=== PATIENT | male | born 1985 | race Caucasian/White ===

== ENCOUNTER 2020-10-16 09:30 | Emergency (ER) | payer OTHER ==
[~2020-10-16] VITALS: Ht 188 cm; Wt 83.9 kg
[2020-10-16 09:39] VITALS: BP 100/57
--- NOTE | 2020-10-16 09:40 | NUR ---
DR. MELCHOR AT BEDSIDE FOR EVAL.
[2020-10-16] MEDS ORDERED: LIDOCAINE 1%-EPI 1:100,000 20 ML VIAL ONE (09:48)
[2020-10-16] MEDS ORDERED: TDAP [DIPH/PERTUSSIS/TET] 0.5 ML VIAL IM ONE ×2 (09:49→10:00)
--- NOTE | 2020-10-16 10:29 | NUR ---
DR. MELCHOR AT BEDSIDE FOR LAC REPAIR.
--- NOTE | 2020-10-16 11:15 | NUR ---
PATIENT ABLE TO MOVE RIGHT HAND C/O PAIN WITH MOVEMENT. DR. MELCHOR AWARE.
[2020-10-16] MEDS ORDERED: METR500T PO (11:16)
[2020-10-16] MEDS ORDERED: DOXY100T2 PO (11:16)
--- NOTE | 2020-10-16 11:25 | NUR ---
SUTURE ON RFA COVERED WITH DRESSING AND ANTIBIOTIC OINTMENT. Patient discharged to home in stable condition. Written and verbal after care instructions given. Patient verbalizes understanding of instruction.
== END 2020-10-16 11:29 | disposition home or self-care (01) ==
LOC: ER 09:36
DX: S51.811A Laceration without foreign body of right forearm, initial encounter (principal); F17.200 Nicotine dependence, unspecified, uncomplicated; Z88.1 Allergy status to other antibiotic agents; W54.0XXA Bitten by dog, initial encounter; Y93.89 Activity, other specified; Y92.89 Other specified places as the place of occurrence of the external cause; Y99.8 Other external cause status
CPT/HCPCS: 73090; 90471; 90715; 99283; 99406; A6403; J3490